=== PATIENT | female | born 1960 | race African-American/Black ===

== ENCOUNTER 2020-11-14 12:41 | Emergency (ER) | payer OTHER, MEDICAID ==
[~2020-11-14] VITALS: Ht 165.1 cm; Wt 64.0 kg
[2020-11-14] MEDS ORDERED: LORAZEPAM 1MG TABLET PO ONE (13:15)
[2020-11-14 13:49] LABS: BASOPHILS % 0.3 % (0.0-2.0); EOSINOPHILS % 0.1 % (0.0-5.0); HEMATOCRIT. 43.8 % (36.0-48.0); HEMOGLOBIN. 14.8 g/dL (12.0-16.0); LYMPHOCYTES % 20.7 % (20.0-50.0); MEAN CORPUSCULAR HEMOGLOBIN 30.7 pg (28.0-32.0); MEAN PLATELET VOLUME 7.8 fl (7.4-10.4); MONOCYTES % 8.3 % (2.0-8.0); NEUTROPHILS % 70.6 % (40.0-76.0); PLATELET 246 x1000/uL (130-400); RED BLOOD CELL COUNT 4.82 mill/uL (4.2-5.4); RED CELL DISTRIBUTION WIDTH 13.3 % (11.6-14.6)
[2020-11-14 13:56] LABS: CHLORIDE 102 mEq/L (98-107)
[2020-11-14] MEDS ORDERED: DICYCLOMINE 10 MG/5 ML ORAL SYR PO STA (14:24)
[2020-11-14] MEDS ORDERED: MAGNESIUM/ALUMINUM HYDROXIDE/SIMETHICONE 30ML UDC PO STA (14:24)
[2020-11-14] MEDS ORDERED: POTASSIUM CHLORIDE 20MEQ TABLET SR PO ONE (14:30)
[2020-11-14 18:00] VITALS: BP 141/87
== END 2020-11-14 19:09 | disposition home or self-care (01) ==
LOC: ER 12:41
DX: R20.2 Paresthesia of skin (principal); E87.6 Hypokalemia; I10 Essential (primary) hypertension; M32.9 Systemic lupus erythematosus, unspecified; Z88.0 Allergy status to penicillin
CPT/HCPCS: 36415; 80048; 85025; 93005; 99285